=== PATIENT | male | born 1975 | race Caucasian/White ===

== ENCOUNTER 2017-04-07 09:12 | Emergency (ER) | payer BC ==
[2017-04-07 09:44] VITALS: BP 125/75
--- NOTE | 2017-04-07 10:06 | UC ---
Skin Complaint HPI - HPI Summary HPI Summary: The patient comes in today for: 1. Right leg soreness: Onset: 4 days ago. Palliative/provocative: Standing makes it better than laying down. Quality: Ache Region: Right lower leg Severity: 4/10 Time: Constant. Associated symptoms: Fevers: None. Tetanus: Last one was in August or September of 2016. Drainage: none. Event: He had his lower right leg pinched between a large riding mower and a trailer. * - History of Current Complaint Chief Complaint: UCSkin Time Seen by Provider: 04/07/17 09:59 Stated Complaint: RIGHT LEG PAIN/WOUND Hx Obtained From: Patient, Family/Crane Helper - Allergy/Home Medications Allergies/Adverse Reactions: Allergies Allergy/AdvReac Type Severity Reaction Status Date / Time No Known Allergies Allergy Verified 04/07/17 09:44 Review of Systems Constitutional: Negative Skin: Rash Eyes: Negative ENT: Negative Respiratory: Negative Cardiovascular: Negative Gastrointestinal: Negative Genitourinary: Negative All Other Systems Reviewed And Are Negative: Yes PMH/Surg Hx/FS Hx/Imm Hx Previously Healthy: Yes - Surgical History Surgical History: Yes Surgery Procedure, Year, and Place: appendectomy, hernia repair, adenoids - Family History Known Family History: Positive: Diabetes Negative: Cardiac Disease, Hypertension - Social History Occupation: Employed Full-time Lives: With Family Alcohol Use: None Substance Use Type: None Smoking Status (MU): Never Smoked Tobacco Physical Exam Triage Information Reviewed: Yes Appearance: Well-Appearing, No Pain Distress, Well-Nourished Vital Signs: Initial Vital Signs Temp 99.0 F 04/07/17 09:40 Pulse 85 04/07/17 09:40 Resp 14 04/07/17 09:40 BP 125/75 04/07/17 09:40 Pulse Ox 98 04/07/17 09:40 Vital Signs Reviewed: Yes Eyes: Positive: Conjunctiva Clear. Negative: Discharge ENT: Positive: Hearing grossly normal. Negative: Pharyngeal erythema, Nasal congestion, Nasal drainage, TM bulging, TM dull, TM red, Tonsillar swelling, Tonsillar exudate Dental: Negative: Gross Decay/Caries @, Dental Fracture @ Neck: Positive: Supple, Nontender, No Lymphadenopathy. Negative: Nuchal Rigidity Respiratory: Positive: Chest non-tender, Lungs clear, No respiratory distress, No accessory muscle use. Negative: Rhonchi, Wheezing Cardiovascular: Positive: RRR, No Murmur Abdomen Description: Positive: Nontender, No Organomegaly, Soft. Negative: Distended, Guarding Musculoskeletal: Positive: Strength Intact, ROM Intact, Other: - Calf circumference at 22 cm up from the medial malleolus. Right: 35 cm Left: 34 cm The right lower leg has brusing laterally and posteriorly. There is an ulcer of the lower medial side. There is a ring of redness and tenderness around this ulcer, but no discharge. Neurological: Positive: Alert, Muscle Tone Normal Psychological: Positive: Age Appropriate Behavior, Consolable Skin: Negative: rashes, breakdown Diagnostics - Radiology No standard instances Xray Interpretation: No Acute Changes Radiology Interpretation Completed By: Radiologist Course/Dx - Course Course Of Treatment: Patient told that US was normal (oral report from technitian). Will start antibiotics for sore abrasion. - Differential Diagnoses - Skin Complaint Differential Diagnoses: Cellulitis, Impetigo, Urticaria - Diagnoses Provider Diagnoses: Contusion, abrasion, cellulitis of the right lower leg. Discharge - Discharge Plan Condition: Stable Disposition: HOME Patient Education Materials: Contusion in Adults (ED), Cellulitis (ED) Referrals: Beatriz Salas MD [Primary Care Provider] - 1 Week (Please see your primary care provider in about one to two weeks to see how well you are doing. If you get worse, please be seen sooner.) Additional Instructions: Stop the neomycin/Neosporin ointment. Use Polysporin on any open wound. Keep elevated as much as you can. Watch the abrasion for increasing redness, tenderness, swelling or pain. If these occur, please be seen again at that time.
--- NOTE | 2017-04-07 11:45 | RAD ---
INDICATION: Right lower leg swelling. COMPARISON: There are no prior studies available for comparison. TECHNIQUE: Multiple real-time, color flow and Doppler tracings of the right lower extremity were obtained. FINDINGS: The common femoral, femoral, profunda femoral and popliteal veins all demonstrate normal compressibility, augmentation with compression and phasic response with respiration. The posterior tibial and peroneal veins demonstrate normal compressibility and augmentation with compression. IMPRESSION: NO EVIDENCE FOR DEEP VENOUS THROMBOSIS.
== END 2017-04-07 11:46 | disposition home or self-care (01) ==
LOC: UCCORT 09:12
DX: S80.11XA Contusion of right lower leg, initial encounter (principal); S80.811A Abrasion, right lower leg, initial encounter; L03.115 Cellulitis of right lower limb; W23.0XXA Caught, crushed, jammed, or pinched between moving objects, initial encounter; Y93.9 Activity, unspecified; Y92.9 Unspecified place or not applicable
CPT/HCPCS: 99212; G0463

== ENCOUNTER 2017-09-26 18:18 | Emergency (ER) | payer BC | END 2017-09-26 20:26 | disposition left against medical advice (07) | LOC: UCCORT 18:18 | DX: S39.91XA Unspecified injury of abdomen, initial encounter (principal); X58.XXXA Exposure to other specified factors, initial encounter; Y93.9 Activity, unspecified; Y92.9 Unspecified place or not applicable; Z53.21 Procedure and treatment not carried out due to patient leaving prior to being seen by health care provider ==

== ENCOUNTER 2017-11-01 10:46 | Emergency (ER) | payer BC ==
--- NOTE | 2017-11-01 12:48 | UC ---
FLU HPI - HPI Summary HPI Summary: 42 year old female presents with complains of nausea, vomiting, cough, and body aches. - History of Current Complaint Stated Complaint: FLU SYMPTOMS Time Seen by Provider: 11/01/17 12:48 Hx Obtained From: Patient Onset/Duration: Sudden Onset Severity Currently: Moderate Severity Initially: Moderate Pain Scale Used: 0-10 Numeric - 5 - Allergy/Home Medications Allergies/Adverse Reactions: Allergies Allergy/AdvReac Type Severity Reaction Status Date / Time No Known Allergies Allergy Verified 11/01/17 12:51 Home Medications: Home Medications Naproxen [Naprosyn 500 mg] 1 tab BID 11/01/17 [History Confirmed 11/01/17] PMH/Surg Hx/FS Hx/Imm Hx Previously Healthy: Yes - Surgical History Surgical History: Yes Surgery Procedure, Year, and Place: appendectomy, hernia repair, adenoids - Family History Known Family History: Positive: Diabetes Negative: Cardiac Disease, Hypertension - Social History Alcohol Use: None Substance Use Type: None Smoking Status (MU): Never Smoked Tobacco Review of Systems Constitutional: Fever, Chills, Fatigue Skin: Negative Eyes: Negative ENT: Nasal Discharge, Sinus Congestion, Sinus Pain/Tenderness Respiratory: Negative Cardiovascular: Negative Gastrointestinal: Vomiting, Diarrhea, Nausea Genitourinary: Negative Motor: Negative Neurovascular: Negative Musculoskeletal: Negative Neurological: Negative Psychological: Negative All Other Systems Reviewed And Are Negative: Yes Physical Exam Triage Information Reviewed: Yes Vital Signs Reviewed: Yes Eye Exam: Normal ENT Exam: Normal Dental Exam: Normal Neck exam: Normal Neck: Positive: 1 Respiratory Exam: Normal Cardiovascular Exam: Normal Abdominal Exam: Normal Musculoskeletal Exam: Normal Neurological Exam: Normal Psychological Exam: Normal Skin Exam: Normal Flu Course/Dx - Differential Dx/Diagnosis Provider Diagnoses: nausea. vomiting. sinusitis Discharge - Discharge Plan Condition: Stable Disposition: HOME Prescriptions: Azithromyxin GIO (NF) [Z-Gio (Zithromax) 250 mg tabs #6] 2 tab PO .TODAY, THEN 1 DAILY #6 tab Guaifenesin-Codeine [Cheratussin AC] 1 teasp PO Q8H PRN #120 ml MDD 15 ml PRN Reason: Cough LoraTADine TAB(NF) [Claritin 10 MG TAB(NF)] 10 mg PO DAILY #30 tab Methylprednisolone [Medrol Dosepak 4 MG*] 4 mg PO .SEE GIO INSTRUCTION #21 tab Patient Education Materials: Sinusitis (ED) Forms: *Work Release Referrals: Beatriz Salas MD [Primary Care Provider] -
[2017-11-01 12:58] VITALS: BP 111/78
== END 2017-11-01 13:53 | disposition home or self-care (01) ==
LOC: UCCORT 10:46
DX: R11.2 Nausea with vomiting, unspecified (principal); J32.9 Chronic sinusitis, unspecified
CPT/HCPCS: 87502; 99212; G0463

== ENCOUNTER 2017-12-08 13:21 | Emergency (ER) | payer BC | END 2017-12-08 17:31 | disposition left against medical advice (07) | LOC: UCCORT 13:21 | DX: J34.89 Other specified disorders of nose and nasal sinuses (principal); R68.89 Other general symptoms and signs; Z53.21 Procedure and treatment not carried out due to patient leaving prior to being seen by health care provider ==

== ENCOUNTER 2019-05-30 13:34 | Emergency (ER) | payer BC, OTHER ==
--- OUTSIDE RECORDS SUMMARY | 2019-05-30 14:01 | XMS REPORT | Continuity of Care Document ---
:1975 External Reference #:[id number] Author Name Thomas Culver M.D. 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 Onset: 03/16/2019 Family History Date Family Member(s) Observation Comments Father Alive And Well Mother due to Cancer, Breast () Children 3 Siblings 2 Social History Type Date Description Comments Sex Unknown Marital Status Legal Status: Occupation [employer] ETOH Use Denies alcohol use Tobacco Use Start: Unknown Denies Smoking Recreational Drug Use Denies Drug Use Smoking Status Reviewed: 05/25/19 Denies Smoking Allergies, Adverse Reactions, Alerts Description No Known Drug Allergies Medications Active Medications SIG Qnty Indications Ordering Provider Date Oxycodone-Acetaminop 1-2 by mouth every 30tabs Thomas yTson 05/09/2019 hen 6 hour as needed Shanda Culver 5-325mg Tablets for post op pain Reference #: [id number] Naproxen 1 by mouth twice a 60tabs Thomas Tyson 05/09/2019 500mg day w/food Shanda Culver Tablets History Medications Zolpidem Tartrate one orally at 5tabs Thomas Tyson 05/09/2019 - 10mg bedtime as needed Shanda Culver 05/25/2019 Tablets insomnia Reference #: [id number] Ondansetron 1 tablet under the 10tabs Thomas Yin 05/09/2019 - 4mg Tablets tongue every 6 Shanda Culver 05/25/2019 Dispers hours as needed for nausea Cephalexin 1 by mouth every 6 12caps Thomas Yin 05/09/2019 - 500mg hours, finish, to Shanda Culver 05/25/2019 Capsules start after surgery No Active Medications Unknown 03/16/2019 - 05/09/2019 Vital Signs Date Vital Result Comment 05/25/2019 1:18pm Height 62 inches 5'2" Weight 160.00 lb BMI (Body Mass Index) 29.3 kg/m2 Heart Rate 71 /min Respiratory Rate 17 /min Body Temperature 97.0 F Pain Level 6 LT Hip O2 % BldC Oximetry 97 % 03/16/2019 1:33pm Height 62 inches 5'2" Weight 162.00 lb BMI (Body Mass Index) 29.6 kg/m2 Heart Rate 67 /min Body Temperature 97.5 F Pain Level 6 LT Hip O2 % BldC Oximetry 96 % Procedures Date Code Description Status 05/15/2019 56940 Arthroscopy,Hip,Labral Repair Completed 05/15/2019 34706 Arthroscopy,Hip,W/Femoroplasty,Treatment Of Cam Lesion Completed 03/16/2019 83394 Radiologic Exam Hip Unilateral With Pelvis 2-3 Views Completed Encounters Type Date Location Provider Dx Diagnosis Office Visit 03/16/2019 [place] [facility] Thomas Yin M24.152 Other articular 1:00p Shanda Culver cartilage disorders, left hip M61.452 Other calcification of muscle, left thigh Z71.3 Dietary counseling and surveillance M25.552 Pain in left hip
--- OUTSIDE RECORDS SUMMARY | 2019-05-30 14:01 | XMS REPORT | Continuity of Care Document ---
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 Onset: 03/16/2019 Family History Date Family Member(s) Observation Comments Father Alive And Well Mother due to Cancer, Breast () Children 3 Siblings 2 Social History Type Date Description Comments Sex Unknown Marital Status Legal Status: Occupation [employer] ETOH Use Denies alcohol use Tobacco Use Start: Unknown Denies Smoking Recreational Drug Use Denies Drug Use Smoking Status Reviewed: 05/25/19 Denies Smoking Allergies, Adverse Reactions, Alerts Description No Known Drug Allergies Medications Active Medications SIG Qnty Indications Ordering Provider Date Oxycodone-Acetaminop 1-2 by mouth every 30tabs Thomas Tyson 05/09/2019 hen 6 hour as needed Shanda Culver 5-325mg Tablets for post op pain Reference #: [id number] Naproxen 1 by mouth twice a 60tabs Thomas Tyson 05/09/2019 500mg day w/food Shanda Culver Tablets History Medications Zolpidem Tartrate one orally at 5tabs Thomas Tyson 05/09/2019 - 10mg bedtime as needed Shanda Culver 05/25/2019 Tablets insomnia Reference #: [id number] Ondansetron 1 tablet under the 10tabs Thomas Tyson 05/09/2019 - 4mg Tablets tongue every 6 [...] % Procedures Date Code Description Status 05/15/2019 90190 Arthroscopy,Hip,Labral Repair Completed 05/15/2019 09116 Arthroscopy,Hip,W/Femoroplasty,Treatment Of Cam Lesion Completed 03/16/2019 71306 Radiologic Exam Hip Unilateral With Pelvis 2-3 Views Completed Encounters Type Date Location Provider Dx Diagnosis Office Visit 03/16/2019 [place] [facility] Thomas Yin M24.152 Other articular 1:00p Shanda Culver cartilage disorders, left hip M61.452 Other calcification of muscle, left thigh Z71.3 Dietary counseling and surveillance M25.552 Pain in left hip
[2019-05-30 14:06] VITALS: BP 116/79
--- NOTE | 2019-05-30 14:28 | UC ---
Skin Complaint HPI - HPI Summary HPI Summary: Pt presents with c/o of increased redness to surgical incision to left anterior upper thigh. Pt had laparoscopic hip surgery on 05/13/19 and had sutures removed on 05/25/19. Pt went swimming in his pool yesterday and noticed this morning that one suture site appears to be increased redness and "macerated " skin - History of Current Complaint Chief Complaint: UCSkin Time Seen by Provider: 05/30/19 14:21 Stated Complaint: SKIN COMPLAINT Hx Obtained From: Patient Onset/Duration: Sudden Onset, Worse Since Skin Exposure Onset/Duration: Hours Ago Timing: Constant Onset Severity: Mild Current Severity: Mild Pain Intensity: 0 Location: Discrete - left upper anterior thigh Aggravating Factor(s): Touch Alleviating Factor(s): Nothing Associated Signs & Symptoms: Positive: Drainage, Tenderness Related History: Other: - recent surgery, surgical site - Allergy/Home Medications Allergies/Adverse Reactions: Allergies Allergy/AdvReac Type Severity Reaction Status Date / Time No Known Allergies Allergy Verified 05/30/19 14:06 PMH/Surg Hx/FS Hx/Imm Hx Previously Healthy: Yes - Surgical History Surgical History: Yes Surgery Procedure, Year, and Place: appendectomy, hernia repair, adenoids, left hip surgery - Family History Known Family History: Positive: Diabetes Negative: Cardiac Disease, Hypertension - Social History Occupation: Employed Full-time Lives: With Family Alcohol Use: None Substance Use Type: None Smoking Status (MU): Never Smoked Tobacco Have You Smoked in the Last Year: No - Immunization History Most Recent Influenza Vaccination: no 2017 Vaccination Up to Date: Yes Review of Systems All Other Systems Reviewed And Are Negative: Yes Constitutional: Positive: Negative Skin: Positive: Other - surgical site wounds, with macerated and mildly erythematous skin left upper anterior thigh Eyes: Positive: Negative ENT: Positive: Negative Respiratory: Positive: Negative Cardiovascular: Positive: Negative Gastrointestinal: Positive: Negative Genitourinary: Positive: Negative Motor: Positive: Negative Neurovascular: Positive: Negative Musculoskeletal: Positive: Negative Neurological: Positive: Negative Psychological: Positive: Negative Is Patient Immunocompromised?: No Physical Exam Triage Information Reviewed: Yes Appearance: Well-Appearing Vital Signs: Initial Vital Signs Temp 97.7 F 05/30/19 14:01 Pulse 63 05/30/19 14:01 Resp 16 05/30/19 14:01 BP 116/79 05/30/19 14:01 Pulse Ox 97 05/30/19 14:01 Vital Signs Reviewed: Yes Eye Exam: Normal ENT Exam: Normal Dental Exam: Normal Neck exam: Normal Respiratory Exam: Normal Respiratory: Positive: No respiratory distress Musculoskeletal Exam: Normal Musculoskeletal: Positive: Strength Intact, Other: - using crutches to ambulate Neurological Exam: Normal Psychological Exam: Normal Skin Exam: Other - healing surgical site wounds, one surgical site with mild erythema aournd macerated skin ~ 1cm X 3 mm Course/Dx - Differential Diagnoses - Skin Complaint Differential Diagnoses: Cellulitis, Impetigo - Diagnoses Provider Diagnosis: Infected wound Discharge - Sign-Out/Discharge Documenting (check all that apply): Patient Departure All imaging exams completed and their final reports reviewed: No Studies - Discharge Plan Condition: Stable Disposition: HOME Prescriptions: Cephalexin CAP* [Keflex 500 CAP*] 500 mg PO Q12H #14 cap Patient Education Materials: Cellulitis (ED) Referrals: Ramsey Stark MD [Primary Care Provider] - If Needed Thomas Calvillo [Medical Doctor] - As Soon As Possible - Billing Disposition and Condition Condition: STABLE Disposition: Home - Attestation Statements Provider Attestation: Per institutional requirements, I have reviewed the chart, however, I was not consulted specifically or made aware of this patient by the midlevel provider. I did not personally evaluate, interact with , or disposition this patient.
== END 2019-05-30 14:44 | disposition home or self-care (01) ==
LOC: UCCORT 13:34
DX: T81.41XA Infection following a procedure, superficial incisional surgical site, initial encounter (principal)
CPT/HCPCS: 99212; G0463